=== PATIENT | male | born 1970 | race Caucasian/White ===

== ENCOUNTER 2018-06-20 13:50 | Day surgery (SDC) | payer BC ==
[2018-06-20] MEDS ORDERED: LIDOCAINE 2% MDV (20MG/ML) 20ML VIAL IV ONE ×2 (13:51)
[2018-06-20] MEDS ORDERED: PROPOFOL 10 MG/ML VIAL IV ONE ×2 (13:51)
--- NOTE | 2018-06-21 10:30 | Operative Note ---
DATE OF SURGERY: June 20, 2018 OPERATION: ESOPHAGOGASTRODUODENOSCOPY with biopsy. PREOPERATIVE DIAGNOSIS: Non-cardiac chest pain. POSTOPERATIVE DIAGNOSIS: Erythematous and slightly irregular GE junction, otherwise normal upper endoscopy. PROCEDURE: After informed consent was obtained from the patient, he was placed in the left lateral decubitus position in the endoscopy suite, sedated and monitored by the department of anesthesia. A well-lubricated [id number] gastroscope was placed in the posterior oropharynx and under direct visualization passed to the proximal esophagus. The endoscope was advanced through the proximal, mid, and distal esophagus. The GE junction was slightly irregular. No ulcers, erosions, strictures, varices, or mass lesions were seen. The gastric body, antrum, pylorus, duodenal bulb, and sweep were unremarkable. J-turn views of the proximal stomach were unrevealing. The endoscope was straightened. The GE junction was biopsied. The endoscope was removed from the patient with no new findings or abnormalities identified. RECOMMENDATIONS: I would suggest the patient start empirically a PPI and see if this alleviates his chest pain symptoms. As always, thank you for allowing me to participate in the healthcare of your patients. CC: DO ANEESH Kolb
== END 2018-06-20 14:56 | disposition home or self-care (01) ==
LOC: HOP 13:50
PROVIDERS: ATTEND Internal Medicine Gastroenterology
DX: R07.89 Other chest pain (principal); K31.89 Other diseases of stomach and duodenum; K21.9 Gastro-esophageal reflux disease without esophagitis